=== PATIENT | female | born 1975 | race Caucasian/White ===

== ENCOUNTER → 2021-01-17 11:02 | Outpatient (CLI) | payer OTHER, SELFPAY ==
--- NOTE | ~2021-01-17 | XR_ITS ---
EXAMINATION: XR chest 2V 01/17/2021 11:31 INDICATION: Cough. Covid positive. PROCEDURE: 2 view chest COMPARISON: No prior studies for comparison. FINDINGS: The lungs are clear. The cardiomediastinal silhouette is within normal limits. There are no pleural effusions. There is no pneumothorax suspected. IMPRESSION: 1: NO ACUTE CARDIOPULMONARY DISEASE. Reviewed, dictated and finalized at location B. 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
== END ==
PROVIDERS: PCP Family Medicine; Visit Provider Nurse Practitioner Gerontology
DX: R05.9 Cough, unspecified (principal)
CPT/HCPCS: 71046

== ENCOUNTER 2021-09-26 10:52 | Outpatient (CLI) | payer OTHER, SELFPAY ==
--- NOTE | ~2021-09-26 | CT_ITS ---
EXAMINATION: CT abdomen pelvis wo con DATE: 09/26/2021 11:16 INDICATION: Flank pain TECHNIQUE: Computed tomography (CT) of the abdomen and pelvis was performed without intravenous contr ast. The dose-length product was 543.53 mGy-cm. Automated exposure control and iterative reconstructi on technique were employed. COMPARISON: None. FINDINGS: Lung bases are unremarkable. Heart size normal. No significant pleural or pericardial effus ion. There are calcified injection granulomas in the right gluteal region. No significant vascular ab normality. No lymphadenopathy. The liver, spleen, adrenal glands and kidneys are unremarkable. Gallbladder is present. Nonobstructiv e bowel gas pattern. There is an IUD in the endometrium. No free air or free fluid. Levoscoliosis. Th ere are scattered sclerotic lesions of the pelvis, most likely bone islands, although sclerotic metas tases are not excluded. IMPRESSION: 1. No acute abdominal abnormality. No findings to account for patient's symptoms 2: Scattered sclerotic lesions of the pelvis, most likely benign bone islands, although sclerotic me tastases are not excluded. Recommend correlation with bone scan. Correlate for history of malignancy. Reviewed, dictated and finalized at location A. IMPRESSION: 1. No acute abdominal abnormality. No findings to account for patient's symptom s 2: Scattered sclerotic lesions of the pelvis, most likely benign bone islands, although sclerotic metastases are not excluded. Recommend correlation with bon e scan. Correlate for history of malignancy.
[2021-09-26 11:19] LABS: Basophils Absolute Auto 0.1 K/mm3 (0.0-0.1); Basophils Percent Auto 0.6 % (0.2-1.2); Eosinophils Absolute Auto 0.2 K/mm3 (0-0.3); Eosinophils Percent Auto 1.9 % (0-4.4); Hematocrit 44.1 % (37.0-47.0); Hemoglobin 14.3 g/dL (12.0-15.0); Immature Granulocyte Absolute 0.01 K/mm3 (0.00-0.031); Immature Granulocyte Percent A 0.1 % (0-0.5); Lymphocytes Absolute Auto 1.59 K/mm3 (0.9-3.2); Lymphocytes Percent Auto 20.1 % (18.3-44.2); Mean Corpuscular HGB Conc 32.4 g/dl (32-36); Mean Corpuscular Hemoglobin 32.4 pg (26-34); Mean Corpuscular Volume 99.8 fl (80-100); Mean Platelet Volume 11.4 fl (7.4-10.4); Monocytes Absolute Auto 0.5 K/mm3 (0.1-0.6); Monocytes Percent Auto 6.1 % (2.6-8.5); Neutrophils Absolute Auto 5.6 K/mm3 (1.3-6.7); Neutrophils Percent Auto 71.2 % (45.5-73.1); Platelet Count Result 224 k/mm3 (150-375); Red Blood Count 4.42 M/mm3 (4.2-5.4); Red Cell Distribution Width 11.7 % (11.5-14.5); White Blood Count 7.9 K/mm3 (4.5-10.0)
[2021-09-26 11:31] LABS: Alanine Aminotransferase 11 U/L (6-35); Albumin Level 4.5 g/dL (3.5-5.1); Alkaline Phosphatase 64 U/L (38-126); Anion Gap 9 mmol/L (8-16); Aspartate Amino Transferase 20 U/L (14-36); Bilirubin,Total 0.5 mg/dL (0.2-1.3); Blood Urea Nitrogen 12 mg/dL (7-17); Carbon Dioxide 28 mmol/L (22-30); Chloride 103 mmol/L (98-107); Estimated Glomerular Filt Rate > 60; Glucose 101 mg/dL (65-110); Potassium 4.3 mmol/L (3.4-5.0); Sodium 140 mmol/L (137-145)
== END 2021-09-26 10:53 | disposition home or self-care (01) ==
PROVIDERS: PCP Family Medicine; Visit Provider Nurse Practitioner Gerontology
DX: R10.9 Unspecified abdominal pain (principal); M89.9 Disorder of bone, unspecified
CPT/HCPCS: 36415; 74176; 80053; 85025

== ENCOUNTER → 2022-01-26 15:16 | Outpatient (CLI) | payer OTHER, SELFPAY ==
--- NOTE | ~2022-01-26 | CT_ITS ---
Non-contrast CT scan of the Abdomen and Pelvis Clinical indication: Sclerotic bone lesions, prior abnormal CT Technique: 5 mm axial scans were obtained through the abdomen and pelvis without intravenous or oral contrast. Dose reduction technique was used on this scan by utilizing automated exposure control and iterative reconstruction technique. Findings: Images through the lung bases reveal no abnormalities. There is no evidence of renal or ureteral calculi. The kidneys and the ureters are nondilated. The liver, spleen, pancreas, gallbladder, and adrenals appear normal. There is no aortic aneurysm. There is no evidence of bowel obstruction. Normal appendix. Images through the pelvis were performed. There is no evidence of ascites or lymphadenopathy. Urinary bladder unremarkable. IUD in place. 3.4 cm right adnexal cyst noted. Scattered subcentimeter sclerotic osseous lesions are essentially unchanged, suggestive of bone islan ds. Impression: 3.4 cm right adnexal cyst. This is probably functional. Scattered subcentimeter sclerotic osseous lesions are essentially unchanged, most likely scattered bill [place] islands. Reviewed, dictated and finalized at [facility]. OR DICTIONARY Impression: 3.4 cm right adnexal cyst. This is probably functional. Scattered subcentimeter sclerotic osseous lesions are essentially unchanged, mo st likely scattered bone islands.
== END ==
PROVIDERS: PCP Family Medicine; Visit Provider Nurse Practitioner Gerontology
DX: R93.89 Abnormal findings on diagnostic imaging of other specified body structures (principal); M89.9 Disorder of bone, unspecified
CPT/HCPCS: 74176

== ENCOUNTER 2022-02-01 15:49 | Outpatient (CLI) | payer OTHER, SELFPAY ==
--- NOTE | ~2022-02-01 | MM_ITS ---
EXAMINATION: MM screening monster BI w sofi HISTORY: Screening TECHNIQUE: Craniocaudal and mediolateral oblique 3-D tomosynthesis images were obtained and synthetic 2-D images were generated. CAD analysis was submitted and interpreted. COMPARISON: Comparison to multiple prior studies sequentially, with oldest reviewed study dated 10/2013. BREAST PARENCHYMAL COMPOSITION: There are scattered areas of fibroglandular density. FINDINGS: There is no evidence of suspicious mass, calcification, or architectural distortion to sugg est malignancy in either breast. There has been no suspicious interval change. IMPRESSION: 1. No mammographic evidence of malignancy. 2. Recommend routine screening mammography in one year. BI-RADS Category 1: Negative Reviewed, dictated and finalized at location B. 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
== END 2022-02-01 15:50 | disposition home or self-care (01) ==
PROVIDERS: PCP Family Medicine; Visit Provider Family Medicine
DX: Z12.31 Encounter for screening mammogram for malignant neoplasm of breast (principal)
CPT/HCPCS: 77063; 77067

== ENCOUNTER → 2022-09-20 14:43 | Outpatient (CLI) | payer OTHER, SELFPAY ==
--- NOTE | ~2022-09-20 | XR_ITS ---
EXAMINATION: XR lumbar spine 2-3V DATE: 09/20/2022 14:57 INDICATION: Lumbar pain, unspecified. TECHNIQUE: 3 views of lumbar spine were obtained. COMPARISON: CT abdomen and pelvis 01/26/2022 FINDINGS: There is 17 degrees levoscoliosis of lumbar spine. There is 3 mm anterolisthesis of L4 on L 5. There is mild chronic anterior wedging of T11 vertebral body. There is mildly decreased disc heigh t from L2-L3 through L5-S1. There is multilevel severe facet joint osteoarthritis. IMPRESSION: 1. Mild lumbar spondylosis. 2. Lumbar levoscoliosis. Reviewed, dictated and finalized at location L.
== END ==
PROVIDERS: PCP Family Medicine; Visit Provider Physician Assistant
DX: M54.50 Low back pain, unspecified (principal); M43.06 Spondylolysis, lumbar region; M41.86 Other forms of scoliosis, lumbar region
CPT/HCPCS: 72100

== ENCOUNTER 2023-04-03 08:44 | Outpatient (CLI) | payer OTHER, SELFPAY ==
--- NOTE | ~2023-04-03 | XR_ITS ---
Right ankle Technique: AP, oblique, and lateral views were obtained. Clinical History: Pain Findings: No acute fracture or dislocation is seen. Osseous alignment is anatomic. Ankle mortise and other visualized joint spaces are preserved. Soft tissues are otherwise unremarkable. Impression: Unremarkable right ankle. Reviewed, dictated and finalized at location . 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
== END 2023-04-03 08:45 | disposition home or self-care (01) ==
LOC: ANHIMG 08:50
PROVIDERS: PCP Family Medicine; Visit Provider Podiatrist Foot & Ankle Surgery
DX: M25.571 Pain in right ankle and joints of right foot (principal)
CPT/HCPCS: 73610

== ENCOUNTER 2023-05-17 08:45 | Outpatient (CLI) | payer OTHER, SELFPAY ==
--- NOTE | ~2023-05-17 | MR_ITS ---
EXAMINATION: MR ankle RT wo con DATE: 05/17/2023 13:13 INDICATION: Medial right ankle pain. TECHNIQUE: Magnetic resonance imaging (MRI) of the right ankle was performed without intravenous cont rast. Sequences included sagittal PD-weighted FS FSE, sagittal PD-weighted FSE, coronal PD-weighted F S FSE, coronal PD-weighted FSE, axial PD-weighted FS FSE, and axial PD-weighted FSE. COMPARISON: Right ankle radiographs 04/03/2023 FINDINGS: Medial ankle ligaments: There are changes of prior sprain of the superficial component of deltoid ligament characterized by t hickening and increased signal intensity. The deep component of deltoid ligament is normal. Lateral ankle ligaments: There are changes of prior sprain of anterior talofibular ligament characterized by thickening and in creased signal intensity. Calcaneofibular ligament is normal. Posterior talofibular ligament is intac t. Anterior and posterior tibiofibular ligaments are intact. Tendons: There is mild common peroneal tenosynovitis. The anterior and medial ankle tendons are normal. Achill es tendon is normal. Plantar fascia: Normal. Bones/other: There is deep partial thickness cartilage loss of distal tibia anteromedially. There is cartilage dylon face irregularity of the talar dome. There is edema-like marrow signal intensity in medial malleolus, likely stress reaction. A skin marker overlies the medial malleolus. Fluid: There is no joint effusion. IMPRESSION: 1. Changes of medial and lateral ankle sprains. 2. Edema-like marrow signal intensity in medial malleolus, likely stress reaction. 3. Moderate tibiotalar joint chondrosis. Reviewed, dictated and finalized at location E. IMPRESSION: 1. Changes of medial and lateral ankle sprains. 2. Edema-like marrow signal intensity in medial malleolus, likely stress reacti on. 3. Moderate tibiotalar joint chondrosis.
== END 2023-05-17 08:46 ==
LOC: MICIMG 08:48
PROVIDERS: PCP Podiatrist Foot & Ankle Surgery; Visit Provider Podiatrist Foot & Ankle Surgery
DX: S93.401A Sprain of unspecified ligament of right ankle, initial encounter (principal); M94.271 Chondromalacia, right ankle and joints of right foot; X58.XXXA Exposure to other specified factors, initial encounter
CPT/HCPCS: 73721

== ENCOUNTER 2023-09-23 14:12 | Outpatient (CLI) | payer OTHER, SELFPAY ==
--- NOTE | ~2023-09-23 | XR_ITS ---
EXAMINATION: XR chest 2V Exam Date/Time: 09/23/2023 14:15 CDT HISTORY: cough sob for 5 days Comparison: 01/17/2021. RESULT: Lines, tubes, and devices: None. Lungs and pleura: Patchy subsegmental areas of groundglass opacity in the right lower lung, probably localizing to the right middle lobe. Cardiomediastinal silhouette: Stable. Other: No acute osseous or upper abdominal finding. IMPRESSION: Subsegmental right lower lung opacities concerning for pneumonia. Reviewed, dictated and finalized at location K.
== END 2023-09-23 14:13 ==
PROVIDERS: PCP Physician Assistant; Visit Provider Physician Assistant
DX: R91.8 Other nonspecific abnormal finding of lung field (principal)
CPT/HCPCS: 71046

== ENCOUNTER 2024-09-09 15:23 | Outpatient (CLI) | payer OTHER, SELFPAY ==
--- NOTE | ~2024-09-09 | US_ITS ---
US soft tissue groin RT, US soft tissue groin LT 09/09/2024 15:53 Indication: Intra-abdominal and pelvic swelling. Mass. Procedure: High-resolution ultrasound of the inguinal locations bilaterally Comparison: CT dated 01/26/2022 Findings: Right groin. There is an elliptical fluid collection measuring 2.6 x 1.8 x 0.4 cm which appears to ex tend to the skin surface, suspicious for infectious process. There is an irregular shaped 7 mm mass in the right inguinal region in the area of palpable concern w hich is separate from the fluid. This may represent atypical lymph node. Margins are irregular with m ixed posterior attenuation and internal vascularity. There is an large right inguinal lymph node bernice uring 1.8 x 0.6 x 0.9 cm with fatty hilum, likely reactive. There is a smaller oval 8 mm inguinal lym ph node, also likely reactive. Left groin: In the subcutaneous tissues there is a complex vascular hypoechoic mass with oval configu ration, parallel orientation measuring 1.5 x 0.5 x 1.3 cm. Impression: 1: Right groin: Elliptical fluid collection measuring 2.6 x 1.8 x 0.4 cm extending to the skin surfac e, suspicious for infectious/inflammatory process. There are mildly prominent inguinal lymph nodes, l ikely reactive. In addition there is an irregular shaped 7 mm mass in the right inguinal region which does not have a typical appearance for lymph node, although separate from the fluid. Differential di agnosis includes pathologic lymph node and metastatic disease. Consider biopsy. 2: Complex vascular hypoechoic mass in the subcutaneous tissues of the left inguinal location measuri ng 1.5 cm. Ultrasound-guided biopsy recommended. Reviewed, dictated and finalized at location [] Impression: 1: Right groin: Elliptical fluid collection measuring 2.6 x 1.8 x 0.4 cm extend ing to the skin surface, suspicious for infectious/inflammatory process. There are mildly prominent inguinal lymph nodes, likely reactive. In addition there i s an irregular shaped 7 mm mass in the right inguinal region which does not hav e a typical appearance for lymph node, although separate from the fluid. Differ ential diagnosis includes pathologic lymph node and metastatic disease. Conside r biopsy. 2: Complex vascular hypoechoic mass in the subcutaneous tissues of the left ing uinal location measuring 1.5 cm. Ultrasound-guided biopsy recommended. Impression: 1: Right groin: Elliptical fluid collection measuring 2.6 x 1.8 x 0.4 cm extend ing to the skin surface, suspicious for infectious/inflammatory process. There are mildly prominent inguinal lymph nodes, likely reactive. In addition there i s an irregular shaped 7 mm mass in the right inguinal region which does not hav e a typical appearance for lymph node, although separate from the fluid. Differ ential diagnosis includes pathologic lymph node and metastatic disease. Conside r biopsy. 2: Complex vascular hypoechoic mass in the subcutaneous tissues of the left ing uinal location measuring 1.5 cm. Ultrasound-guided biopsy recommended.
== END 2024-09-09 15:24 | disposition home or self-care (01) ==
LOC: MICIMG 15:25
PROVIDERS: PCP Family Medicine
DX: R19.09 Other intra-abdominal and pelvic swelling, mass and lump (principal); R59.0 Localized enlarged lymph nodes
CPT/HCPCS: 76882

== ENCOUNTER 2025-01-19 15:14 | Outpatient (CLI) | payer OTHER, SELFPAY ==
--- NOTE | ~2025-01-19 | DEXA_ITS ---
Bone Density Report Name: CLAUS RODRIGES Age: 49 Sex: Female Ethnicity: White Date of : 1975 Indication: screening for osteoporosis; prior fracture; Referring Provider: NICK WAY Study: Bone densitometry was performed. Exam Date: January 19, 2025 Accession number: [id number] Bone Density: Region BMD T-score Z-score Classification AP Spine(L1-L4) 1.098 0.5 1.3 Normal Femoral Neck (Left) 0.724 -1.1 -0.3 Osteopenia Total Hip (Left) 0.844 -0.8 -0.3 Normal Femoral Neck (Right) 0.744 -0.9 -0.1 Normal Total Hip (Right) 0.905 -0.3 0.2 Normal Total Hip Mean 0.875 -0.6 -0.1 Normal World Health Organization criteria for BMD impression classify patients as: Normal (T-score at or above -1.0), Osteopenia (T-score between -1.0 and -2.5), or Osteoporosis (T-score at or below -2.5). 10-year Fracture Risk: FRAX not reported because: Premenopausal woman Clinical Information Provided by Patient: Has had a low trauma fracture Smokes Has used the following medications: Vitamin D, Calcium Patient maximum height was 66 No regular weight bearing exercise Does not regularly consume dairy products Drinks caffeinated beverages Onset of menses at age 12 Premenopausal Number of children 0 Missed period for more than 6 months in a row Impression: The patient's bone mass is within expected range for age, gender and ethnicity. The patient has risk factors, including: smoking, previous fracture. Discussion: BONE DENSITY IS WITHIN EXPECTED LIMITS FOR AGE, SEX AND RACE. Bone density is within expected limits for age, sex and race at all sites measured. The patient should follow a healthful lifestyle (good nutrition with adequate calcium and vitamin D, and appropriate weight-bearing exercise). Follow-Up: Consider repeating this study in 2 to 3 years to reassess this patient's status, or sooner if there is some new clinical indication. Reported by: TERRY on 01/19/2025 3:42:00 PM. Reviewed, dictated and finalized at location A.
== END 2025-01-19 15:15 | disposition home or self-care (01) ==
PROVIDERS: PCP Family Medicine
DX: Z13.820 Encounter for screening for osteoporosis (principal); Z87.81 Personal history of (healed) traumatic fracture; Z82.69 Family history of other diseases of the musculoskeletal system and connective tissue
CPT/HCPCS: 77080

== ENCOUNTER 2025-01-25 14:46 | Outpatient (CLI) | payer OTHER, SELFPAY ==
--- NOTE | ~2025-01-25 | CT_ITS ---
EXAMINATION:CT lung screening DATE: 01/25/2025 14:59 INDICATION: Current smoker. TECHNIQUE: Computed tomography (CT) of the chest was performed without intravenous contrast. Automated exposure control and iterative reconstruction technique were employed. The dose-length product (DLP) was 64.76 mGy-cm. COMPARISON: Chest x-ray dated 09/23/2023 FINDINGS: Mild centrilobular pattern of emphysema. No focal pulmonary mass or nodule are seen other than 5 mm size calcified granulomatous nodule in the right lower lobe. No hilar or mediastinal adenopathy. No effusion. IMPRESSION: 1. Mild emphysematous lungs. 2. Benign calcified granulomatous nodule in the right lower lobe. Continue annual low-dose CT screening. Lung RADS category 2 Reviewed, dictated and finalized at location T. CUTTER IMPRESSION: 1. Mild emphysematous lungs. 2. Benign calcified granulomatous nodule in the right lower lobe. Continue kelechi al low-dose CT screening. Lung RADS category 2
== END 2025-01-25 14:47 | disposition home or self-care (01) ==
LOC: MICIMG 14:47
PROVIDERS: PCP Family Medicine; Visit Provider Physician Assistant
DX: Z12.2 Encounter for screening for malignant neoplasm of respiratory organs (principal); Z87.891 Personal history of nicotine dependence
CPT/HCPCS: 71271